=== PATIENT | female | born 2000 | race Caucasian/White ===

== ENCOUNTER 2022-03-15 10:33 | Outpatient (CLI) | payer OTHER, SELFPAY ==
[2022-03-15 11:13] LABS: SARS PCR* POSITIVE SARS-CoV-2 (Negative)
== END 2022-03-15 10:34 | disposition home or self-care (01) ==
LOC: NFLDREF 10:34
PROVIDERS: PCP Family Medicine; Visit Provider Family Medicine
DX: U07.1 COVID-19 (principal)
CPT/HCPCS: 87635

== ENCOUNTER 2022-05-27 10:19 | Outpatient (CLI) | payer OTHER, SELFPAY ==
[2022-05-27 16:12] LABS: Chlamydia DNA Amplified* NOT DETECTED (No Detected); GC DNA Amplified* NOT DETECTED (No Detected)
== END 2022-05-27 10:20 | disposition home or self-care (01) ==
PROVIDERS: PCP Family Medicine; Visit Provider Family Medicine
DX: Z11.3 Encounter for screening for infections with a predominantly sexual mode of transmission (principal)
CPT/HCPCS: 0353U; 87491; 87591

== ENCOUNTER 2022-08-07 11:33 | Outpatient (CLI) | payer OTHER, SELFPAY | END 2022-08-07 11:34 | disposition home or self-care (01) | LOC: NFLDREF 08-08 07:33 | PROVIDERS: PCP Family Medicine; Referring Provider Family Medicine; Visit Provider Registered Nurse | DX: R35.0 Frequency of micturition (principal); N39.0 Urinary tract infection, site not specified | CPT/HCPCS: 87086 ==

== ENCOUNTER 2024-05-10 09:58 | Outpatient (CLI) | payer OTHER, SELFPAY | END 2024-05-10 09:59 | disposition home or self-care (01) | PROVIDERS: PCP Family Medicine; Visit Provider Physician Assistant Medical | DX: K62.5 Hemorrhage of anus and rectum (principal); R10.9 Unspecified abdominal pain; E01.0 Iodine-deficiency related diffuse (endemic) goiter | CPT/HCPCS: 84443; 86140; 86231; 86258; 86364 ==

== ENCOUNTER 2024-05-21 09:48 | Outpatient (CLI) | payer OTHER, SELFPAY ==
--- NOTE | 2024-05-21 11:46 | P.ANES_ITS ---
Anesthesia Charges Start Date/Time Anesthesia Start Date: 05/21/24 Anesthesia Start Time: 11:12 Stop Date/Time Anesthesia Stop Date: 05/21/24 Anesthesia Stop Time: 11:39 Coding CPT Codes CPT Codes: ASHU LWR INTST NDRI NOS - [id number] ([id number]) P1 - NORMAL HEALTHY PATIENT, QX - RECESSING MACHINE OPERATOR SVKhris W/ MED DIRECTION, QK - LEAN SPECIALIST 2-4 CNCRNT ASHU PROC
--- NOTE | 2024-05-21 11:46 | W.ANESCHARGE ---
Anesthesia Charges Start Date/Time Anesthesia Start Date: 05/21/24 Anesthesia Start Time: 11:12 Stop Date/Time Anesthesia Stop Date: 05/21/24 Anesthesia Stop Time: 11:39 Coding CPT Codes CPT Codes: ASHU LWR INTST NDMT NOS - [id number] ([id number]) P1 - NORMAL HEALTHY PATIENT, QX - SET DECORATOR SVKhris W/ MED DIRECTION, QK - OLAP DEVELOPER 2-4 CNCRNT ASHU PROC
--- NOTE | 2024-05-21 12:06 | P.ANES_ITS ---
Anesthesia Charges Start Date/Time Anesthesia Start Date: 05/21/24 Anesthesia Start Time: 11:12 Stop Date/Time Anesthesia Stop Date: 05/21/24 Anesthesia Stop Time: 11:39 Coding CPT Codes CPT Codes: ASHU LWR INTST NDMS NOS - [id number] ([id number]) P1 - NORMAL HEALTHY PATIENT, QK - SHEAR OPERATOR 2-4 CNCRNT ANES PROC, QX - FRONT MAKER LOCKSTITCH SVC W/ MED DIRECTION
--- NOTE | 2024-05-21 12:06 | W.ANESCHARGE ---
Anesthesia Charges Start Date/Time Anesthesia Start Date: 05/21/24 Anesthesia Start Time: 11:12 Stop Date/Time Anesthesia Stop Date: 05/21/24 Anesthesia Stop Time: 11:39 Coding CPT Codes CPT Codes: ASHU LWR INTST NDDE NOS - [id number] ([id number]) P1 - NORMAL HEALTHY PATIENT, QK - SPA THERAPIST 2-4 CNCRNT ANES PROC, QX - ALLIGATOR SHEAR OPERATOR SVC W/ MED DIRECTION
== END 2024-05-21 09:49 | disposition home or self-care (01) ==
LOC: OP CLINIC 09:48
PROVIDERS: PCP Physician Assistant Medical; Visit Provider Surgery
DX: K92.1 Melena (principal)
CPT/HCPCS: 00811; 45380; 88305; J2704